=== PATIENT | female | born 1990 | race Caucasian/White ===

== ENCOUNTER → 2019-07-10 23:22 | Observation (INO) ==
[2019-07-10 22:00] LABS: Bilirubin,Urine Negative (Negative); Blood,Urine Negative (Negative); Clarity,Urine Turbid (Clear); Color,Urine Yellow (Yellow); Glucose,Urine (UA) Normal (Normal); Ketones,Urine Negative (Negative); Leukocyte Esterase,Urine Small (Negative); Nitrite,Urine Negative (Negative); PH,Urine 6.5 pH Units (5.0-8.0); Protein,Urine 30 mg/dL (Neg-Trace); Specific Gravity,Urine 1.025 (1.010-1.025); Urobilinogen,Urine Normal (Normal)
[2019-07-10 22:02] LABS: Basophils % 0.2 %; Eosinophils # 0.1 K/mcL (0.0-0.6); Eosinophils % 1.7 %; Hematocrit 37.7 % (35.3-44.9); Hemoglobin 12.2 g/dL (11.5-15.4); Lymphocytes # 2.3 K/mcL (0.6-4.6); Lymphocytes % 27.6 %; Mean Corpuscular HGB Conc 32.4 g/dL (31.6-35.5); Mean Corpuscular Hemoglobin 28.4 pg (28.0-33.3); Mean Corpuscular Volume 87.9 fL (83.0-100.0); Mean Platelet Volume 12.4 fL (9.4-12.4); Monocytes # 0.7 K/mcL (0.0-1.3); Monocytes % 8.7 %; Neutrophils # 5.1 K/mcL (1.6-8.9); Platelet Count 150 K/mcL (140-400); Red Blood Count 4.29 M/mcL (3.82-4.97); Red Cell Distribution Width 14.6 % (11.5-14.5); Segmented Neutrophils % 60.8 %; White Blood Count 8.4 K/mcL (4.3-11.1)
[2019-07-10 22:07] LABS: Bacteria,Urine Few per hpf (None-Few); Squamous Epithelial Cell,Urine Many per lpf (None-Few); WBC,Urine 15-30 per hpf (0-3)
[2019-07-10 22:22] LABS: Amylase 38 Units/L (29-103); Lipase 68 Units/L (11-82)
[2019-07-10 23:02] LABS: Alanine Aminotransferase 7 Units/L (7-52); Albumin 3.3 g/dL (3.5-5.7); Albumin/Globulin Ratio 1.3 (1.1-2.2); Alkaline Phosphatase 120 Units/L (34-104); Aspartate Amino Transferase 12 Units/L (13-39); BUN/Creatinine Ratio 7 (6-26); Bilirubin,Total 0.2 mg/dL (0.3-1.0); Blood Urea Nitrogen 5 mg/dL (6-20); Calcium 8.7 mg/dL (8.6-10.3); Carbon Dioxide 20 mEq/L (23-29); Chloride 106 mEq/L (98-107); Globulin 2.5 g/dL (2.4-3.5); Glucose 111 mg/dL (70-105); Osmolality,Calculated 282 (280-300); Potassium 3.5 mEq/L (3.5-5.1); Sodium 137 mEq/L (136-145); Total Protein 5.8 g/dL (6.4-8.9); eGFR For African Americans > 60 (> 60); eGFR For Non-African Americans > 60 (> 60)
[~2019-07-10 23:22] MED LIST: *HR* Promethazine 25 MG/ML VIAL IVP ONE; Metoclopramide 10 MG/2 ML VIAL IVP PRN; Ringers Solution, Lactated 1,000 ML IVC ONE; Ringers Solution, Lactated 1,000 ML ONE
== END | disposition home or self-care (01) ==
LOC: 1NENULAB
PROVIDERS: ADMIT Registered Nurse; ATTEND Registered Nurse

== ENCOUNTER → 2021-07-29 23:58 | Observation (INO) ==
[2021-07-29 23:37] LABS: Bacteria,Urine Few per hpf (None-Few); Bilirubin,Urine Negative (Negative); Blood,Urine Negative (Negative); Calcium Oxalate Crystals,Urine Present per hpf; Clarity,Urine Ex.Turbid (Clear); Color,Urine Yellow (Yellow); Glucose,Urine (UA) Normal (Normal); Ketones,Urine Negative (Negative); Leukocyte Esterase,Urine Small (Negative); Mucus,Urine Many per lpf (None-Few); Nitrite,Urine Negative (Negative); Protein,Urine 50 mg/dL (Neg-Trace); Specific Gravity,Urine 1.026 (1.010-1.025); Squamous Epithelial Cell,Urine Many per hpf (None-Few); Urobilinogen,Urine Normal (Normal)
== END | disposition home or self-care (01) ==
LOC: 1NENULAB
PROVIDERS: ADMIT Registered Nurse; ATTEND Registered Nurse